=== PATIENT | male | born 1975 | race Caucasian/White ===

== ENCOUNTER 2016-11-13 08:06 | Day surgery (SDC) | payer BC | END 2016-11-13 12:48 | disposition home or self-care (01) | LOC: RAD.S 08:06 | PROC: 0FB03ZX Excision of Liver, Percutaneous Approach, Diagnostic (ICD-10-PCS; principal; 2016-11-13) | DX: I88.9 Nonspecific lymphadenitis, unspecified (principal); K74.0 Hepatic fibrosis; K21.9 Gastro-esophageal reflux disease without esophagitis; Z79.899 Other long term (current) drug therapy ==

== ENCOUNTER → 2016-11-26 | Outpatient (CLI) | payer BC | END | disposition home or self-care (01) | LOC: RAD.S 07:37 | DX: R79.89 Other specified abnormal findings of blood chemistry (principal); R59.9 Enlarged lymph nodes, unspecified ==